=== PATIENT | female | born 1955 | race Caucasian/White ===

== ENCOUNTER 2019-08-02 18:17 | Emergency (ER) | payer MEDICARE, SELFPAY ==
--- NOTE | ~2019-08-02 | XR_ITS ---
EXAMINATION: XR chest 1V portable DATE: 08/02/2019 19:42 INDICATION: Hypertension. TECHNIQUE: frontal view of the chest was obtained. COMPARISON: None FINDINGS: Patchy airspace opacity in the perihilar right lower lung zone which could represent atelectasis or p neumonia. No pleural effusion or pneumothorax. The cardiomediastinal silhouette is normal. Moderate r ight glenohumeral osteoarthritis. IMPRESSION: 1. Perihilar opacity in the right lower lung zone which could represent atelectasis or pneumonia. Reviewed, dictated and finalized at location A. IMPRESSION: 1. Perihilar opacity in the right lower lung zone which could represent atelect asis or pneumonia.
[2019-08-02 18:20] VITALS: BP 241/113; PULSE 92; RESP 18; TEMP 37.3; O2SAT 97
--- NOTE | 2019-08-02 19:06 | ECG_ITS ---
Measurements Intervals [place] Rate: 87 P: 52 NE: 156 QRS: 39 QRSD: 140 T: 1 QT: 391 QTc: 473 Interpretive Statements SINUS RHYTHM RIGHT BUNDLE BRANCH BLOCK ABNORMAL ECG Electronically Signed On 08-03-2019 8:09:05 CDT by Dwayne Garcia D.O.
--- NOTE | 2019-08-02 19:32 | ED.GENADULT ---
HPI - General Adult General Chief complaint: Recheck/Abnormal Lab/Rx Stated complaint: elevated BP Time Seen by Provider: 08/02/19 18:28 Source: patient and family History of Present Illness HPI narrative: Patient is 63 years old female history of hypertension, patient reports that her blood pressure is high all the time, been hospitalized at [facility] numerous of times to control her blood pressure without success. Currently patient on azilsartan 80 mg once a day. 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 Patient been under tremendous amount of stress lately, unable to sell her house today. Had Ativan prior to arrival. Lost her job recently. Currently patient denying any chest pain, shortness of breath, headache, nausea, vomiting, abdominal pain or back pain. Related Data Allergies Allergy/AdvReac Type Severity Reaction Status Date / Time amlodipine Allergy Severe Other Verified 08/02/19 18:28 Quinolones Allergy Mild Unknown Unverified 08/02/19 18:28 Sulfa (Sulfonamide Allergy Mild Unknown Unverified 08/02/19 18:28 Antibiotics) Penicillins Allergy Unknown Unknown Verified 08/02/19 18:28 tetracycline Allergy Unknown Unknown Verified 08/02/19 18:28 Contrast Media Allergy Mild Unknown Uncoded 08/02/19 18:28 NKFA Allergy Unknown Unknown Uncoded 08/02/19 18:28 PCN,TCN Allergy Unknown Unknown Uncoded 08/02/19 18:28 TETRACYCLINE/SALICYL/CAF/CHLOR Allergy Y Uncoded 08/05/02 15:09 (Generic Allergy) Review of Systems Review of Systems: Narrative: CONSTITUTIONAL: Denies fever, chills, or sweats. EYES: Denies visual changes, redness, or discharge. ENT: Denies rhinorrhea, congestion, sore throat, or otalgia. CARDIOVASCULAR: Denies chest pain, palpitations, or edema. RESPIRATORY: Denies cough or dyspnea. GASTROINTESTINAL: Denies abdominal pain, nausea, vomiting, or diarrhea. GENITOURINARY: Denies dysuria or hematuria. SKIN: Denies rash or itching. MUSCULOSKELETAL: Denies back pain, joint pain, or myalgia. NEUROLOGIC: Denies headache, numbness, or weakness. PSYCHIATRIC: Denies anxiety or depression. [facility] Social History Social History Gender identity (if verbalized by the patient): Female Exam Narrative: Exam Narrative: General appearance: Well-developed, well-nourished Skin: Normal color Head: Normocephalic, nontraumatic Eyes: Clear conjunctiva ENT: Oropharynx normal, ears normal, nose normal Neck: Supple, nontender Chest and respiratory: Airway patent, no respiratory distress, no accessory muscle use Heart: Regular rate/rhythm Abdomen: Soft, nontender, no organomegaly, quiet bowel sounds Vascular: Normal peripheral pulses, normal capillary refill. Musculoskeletal: Normal range of motion, nontender back Neurologic: Alert and oriented ?3, TABLET COATER is normal as tested, no gross motor deficit Course Course Emergency Course: Improving Vital Signs Vital signs: Vital Signs Temperature 37.3 C 08/02/19 18:20 Pulse Rate 92 08/02/19 18:20 Respiratory Rate 18 08/02/19 18:20 Blood Pressure 241/113 H 08/02/19 18:20 Pulse Oximetry 97 08/02/19 18:20 Temperature 37.3 C 08/02/19 18:20 Pulse Rate 65 08/02/19 20:52 Respiratory Rate 18 08/02/19 20:52 Blood Pressure 127/74 08/02/19 20:52 Pulse Oximetry 95 08/02/19 20:52 Medical Decision Making MDM Narrative Medical decision making narrative: Stress, anxiety inducing hypertension is my concern. Labs, chest x-ray and EKG ordered to make sure no cardiac reason for her symptoms. Further plan to follow Differential Diagnosis Differential Diagnosis: Anxiety, depression, uncontroll
[2019-08-02] MEDS: LORAZEPAM INJ 2 MG/ML VIAL 0.5 MG IV PUSH (19:42)
[2019-08-02 19:43] VITALS: BP 183/87; PULSE 80; RESP 18; O2SAT 97
[2019-08-02 19:43] LABS: Basophils Absolute Auto 0.1 K/mm3 (0.0-0.1); Basophils Percent Auto 0.8 % (0.2-1.2); Eosinophils Absolute Auto 0.1 K/mm3 (0-0.3); Eosinophils Percent Auto 1.2 % (0-4.4); Hematocrit 41.9 % (37.0-47.0); Hemoglobin 13.8 g/dL (12.0-15.0); Immature Granulocyte Absolute 0.05 K/mm3 (0.00-0.031); Immature Granulocyte Percent A 0.5 % (0-0.5); Lymphocytes Absolute Auto 3.94 K/mm3 (0.9-3.2); Lymphocytes Percent Auto 36.1 % (18.3-44.2); Mean Corpuscular HGB Conc 32.9 g/dl (32-36); Mean Corpuscular Hemoglobin 28.3 pg (26-34); Mean Corpuscular Volume 85.9 fl (80-100); Mean Platelet Volume 10.1 fl (7.4-10.4); Monocytes Absolute Auto 1.1 K/mm3 (0.1-0.6); Monocytes Percent Auto 9.6 % (2.6-8.5); Neutrophils Absolute Auto 5.7 K/mm3 (1.3-6.7); Neutrophils Percent Auto 51.8 % (45.5-73.1); Platelet Count Result 368 k/mm3 (150-375); Red Blood Count 4.88 M/mm3 (4.2-5.4); Red Cell Distribution Width 13.6 % (11.5-14.5); White Blood Count 10.9 K/mm3 (4.5-10.0)
[2019-08-02] MEDS: CLONIDINE HCL 0.1 MG TABLET PO (19:43)
[2019-08-02 20:52] VITALS: BP 127/74; PULSE 65; RESP 18; O2SAT 95
[2019-08-02 22:20] VITALS: BP 120/47; PULSE 56; RESP 18; O2SAT 96
== END 2019-08-02 22:21 | disposition home or self-care (01) ==
PROVIDERS: Emergency Provider Emergency Medicine
DX: F41.9 Anxiety disorder, unspecified (principal); I10 Essential (primary) hypertension; I45.10 Unspecified right bundle-branch block
CPT/HCPCS: 36415; 71045; 85025; 93005; 96374; 99284; A9270; J2060